=== PATIENT | female | born 1965 | race Caucasian/White ===

== ENCOUNTER 2017-02-27 16:53 | Emergency (ER) | payer BC ==
[2017-02-27 17:08] VITALS: BP 114/76; PULSE 63; RESP 14; TEMP 98.2; O2SAT 94
[2017-02-27] MEDS ORDERED: predniSONE 20 MG TAB PO ONE (17:23)
--- NOTE | 2017-02-27 17:27 | EDPHY ---
H & P Time Seen by Provider: 02/27/17 17:12 HPI/ROS: 51-year-old female presents complaining of bee sting to forehead while cycling yesterday has noted more swelling today. She has been applying diphenhydramine cream to the area. She took 125 mg Benadryl just prior to arrival here tonight. No mouth swelling, no tongue swelling no difficulty breathing no wheezing no rash outside of the area of this sting. Review of systems As per HPI General no fever no chills no weakness HEENT no eye pain no eye discharge. No eye redness, no sore throat Respiratory no cough, no shortness of breath Cardiac no chest pain, no peripheral edema GI no abdominal pain, no diarrhea, no constipation, no nausea, no vomiting no flank pain, no hematuria, no dysuria Musculoskeletal no myalgias, no joint pain Heme no easy bruising, no easy bleeding Endo no polyuria, no polydipsia Skin positive rashes, no pruritus Neuro no syncope, no dizziness, no headaches Psych is no suicidal ideation, no homicidal ideation Past Medical/Surgical History: Depression Social History: Denies alcohol, smoking, drug use Smoking Status: Never smoked Physical Exam: 51-year-old female alert and oriented no acute distress nontoxic appearance afebrile Swelling noted to mid forehead extending to upper aspect of nasal bridge, no erythema no ecchymosis Conjunctiva without erythema Extraocular muscles intact Neck no JVD Lungs clear to auscultation, no respiratory distress Heart regular rate and rhythm Extremities no cyanosis clubbing edema Constitutional: Initial Vital Signs Temperature (C) 36.8 C 02/27/17 17:03 Heart Rate 63 02/27/17 17:03 Respiratory Rate 14 02/27/17 17:03 Blood Pressure 114/76 02/27/17 17:03 O2 Sat (%) 94 02/27/17 17:03 O2 Delivery Mode Room Air Allergies/Adverse Reactions: No Known Allergies Allergy (Unverified 02/27/17 17:01) Home Medications: Medication Instructions Recorded Effexor 02/27/17 Loestrin 21 1-20 Tablet 02/27/17 predniSONE 40 mg PO DAILY #6 tablet 02/27/17 Medical Decision Making ED Course/Re-evaluation: Patient seen and evaluated for bee sting to forehead that occurred 24 hours ago , now with increased swelling. Differential diagnosis considered Allergic reaction, systemic versus local Bee sting with local reaction Impression Bee sting with local reaction Plan Diphenhydramine Prednisone Ice packs Follow-up PCP if not improving - Data Points Medications Given: Discontinued Medications Prednisone (Prednisone) 60 mg PO EDNOW ONE Stop: 02/27/17 17:24 Last Admin: 02/27/17 17:36 Dose: 60 mg Departure - Departure Disposition: Home, Routine, Self-Care Clinical Impression: Bee sting reaction Condition: Good Instructions: Insect Bite or Sting (ED) Additional Instructions: Benadryl every 6 hours as needed for swelling and itching. The generic name for Benadryl is diphenhydramin Famotidine (pepcid) twice a day for 5 days. Prednisone given 1 dose in the emergency department, and a short burst of 40 mg once a day for the next 3 days. Apply ice intermittently to decrease swelling. May use local Benadryl cream and/or hydrocortisone cream or a combination of the 2 as well for itching and symptomatic care. Referrals: BORIS ARTHUR [Primary Care Provider] - As per Instructions Prescriptions: predniSONE 40 mg PO DAILY #6 tablet
== END 2017-02-27 17:41 | disposition home or self-care (01) ==
LOC: CED 16:53
DX: T63.441A Toxic effect of venom of bees, accidental (unintentional), initial encounter (principal)